=== PATIENT | female | born 1995 | race Caucasian/White ===

== ENCOUNTER 2016-07-10 00:58 | Emergency (ER) | payer BC ==
[2016-07-10] MEDS ORDERED: metroNIDAZOLE 250 MG TABLET PO ONE (02:43)
--- NOTE | 2016-07-10 02:43 | PDOC ---
[id number] No Limitations - History of Present Illness Initial Comments: 07/10/16 03:50 The patient is a 21 year old female with no PMHx who presents to the ED with subxiphoid abdominal pain radiating to sternum today. The patient states the pain began after drinking soda, but has intermittently persisted since. She reports taking Pepcid earlier today, with no relief. She denies fever, chills, nausea, vomiting, diarrhea. She denies chest pain, SOB, coughing, wheezing. <Niki Llamas - Last Filed: 07/10/16 03:50> <Maggie Ribeiro - Last Filed: 07/10/16 06:29> - General Chief Complaint: Pain, Acute Stated Complaint: ABDOMINAL AND CHEST PAIN Time Seen by Provider: 07/10/16 01:47 Past History <Niki Llamas - Last Filed: 07/10/16 03:50> - Psycho/Social/Smoking Cessation Hx Anxiety: No Suicidal Ideation: No Smoking Status: No Smoking History: Never smoked Number of Cigarettes Smoked Daily: 0 Information on smoking cessation initiated: No Hx Alcohol Use: No Drug/Substance Use Hx: No Substance Use Type: None <Maggie Ribeiro - Last Filed: 07/10/16 06:29> - Past Medical History Allergies/Adverse Reactions: Allergies Allergy/AdvReac Type Severity Reaction Status Date / Time No Known Allergies Allergy Verified 09/20/12 09:47 Home Medications: Ambulatory Orders No Home Medications 0 dose .ROUTE UTDICT 01/07/12 Pantoprazole Sodium [Protonix] 40 mg PO DAILY #30 tablet. 07/10/16 Review of Systems - Review of Systems Comments:: 07/10/16 03:51 GENERAL/CONSTITUTIONAL: No fever or chills. No weakness. HEAD, EYES, EARS, NOSE AND THROAT: No change in vision. No ear pain or discharge. No sore throat. CARDIOVASCULAR: No chest pain or shortness of breath. RESPIRATORY: No cough, wheezing, or hemoptysis. GASTROINTESTINAL: + subxiphoid abdominal pain. No nausea, vomiting, diarrhea or constipation. GENITOURINARY: No dysuria, frequency, or change in urination. MUSCULOSKELETAL: No joint or muscle swelling or pain. No neck or back pain. SKIN: No rash NEUROLOGIC: No headache, vertigo, loss of consciousness, or change in strength/ sensation. ENDOCRINE: No increased thirst. No abnormal weight change. HEMATOLOGIC/LYMPHATIC: No anemia, easy bleeding, or history of blood clots. ALLERGIC/IMMUNOLOGIC: No hives or skin allergy. <Daren Llamasobhan Tristin - Last Filed: 07/10/16 03:50> *Physical Exam - Vital Signs Last Vital Signs Temp Pulse Resp BP Pulse Ox 98.1 F 81 18 146/83 100 07/10/16 01:50 07/10/16 01:50 07/10/16 01:50 07/10/16 01:50 07/10/16 01:50 - Physical Exam Comments: 07/10/16 03:51 GENERAL: Awake, alert, and fully oriented, in no acute distress HEAD: No signs of trauma EYES: PERRLA, EOMI, sclera anicteric, conjunctiva clear ENT: Auricles normal inspection, hearing grossly normal, nares patent, oropharynx clear without exudates. Moist mucosa NECK: Normal ROM, supple, no lymphadenopathy, JVD, or masses LUNGS: Breath sounds equal, clear to auscultation bilaterally. No wheezes, and no crackles HEART: Regular rate and rhythm, normal S1 and S2, no murmurs, rubs or gallops ABDOMEN: Soft, nontender, normoactive bowel sounds. No guarding, no rebound. No masses EXTREMITIES: Normal range of motion, no edema. No clubbing or cyanosis. No cords, erythema, or tenderness NEUROLOGICAL: Cranial nerves II through XII grossly intact. Normal speech, normal gait SKIN: Warm, Dry, normal turgor, no rashes or lesions noted. <LlamasNiki A - Last Filed: 07/10/16 03:50> - Vital Signs Last Vital Signs Temp Pulse Resp BP Pulse Ox 98.1 F 81 18 146/83 100 07/10/16 01:50 07/10/16 01:50 07/10/16 01:50 07/10/16 01:50 07/10/16 01:50 <Maggie Ribeiro - Last Filed: 07/10/16 06:29> ED Treatment Course - ADDITIONAL ORDERS Additional order review: Laboratory Results 07/10/16 03:37 Urine HCG, Qual Negative - Medications Given in the ED: ED Medications Discontinued Medications Generic Name Dose Route Start Last Admin Trade Name Daisy PRN Reason Stop Dose Admin Al Hydroxide/Mg Hydroxide 30 ml 07/10/16 02:56 07/10/16 03:11 Mylanta Oral Suspension - PO 07/10/16 02:57 30 ml ONCE ONE Administration Metronidazole 2,000 mg 07/10/16 02:43 07/10/16 03:11 Flagyl - PO 07/10/16 02:44 Not Given NOW ONE Oxycodone/Acetaminophen 1 combo 07/10/16 02:44 07/10/16 03:11 Percocet 5/325 - PO 07/10/16 02:45 Not Given ONCE ONE Penicillin V Potassium 250 mg 07/10/16 02:44 07/10/16 03:11 Pen Vee K - PO 07/10/16 02:45 Not Given ONCE ONE <Niki Llamas - Last Filed: 07/10/16 03:50> Medical Decision Making - Medical Decision Making 07/10/16 06:28 Pt is morbidly obese and she has GERD symptoms. She has normal EKG and CXR and vitals and normal exam, other than her obesity. She will be treated with protonix. I advised ehr to lose weight and exercise and to eat at least 3 hrs before bedtime, and to avoid spicy foods. <Maggie Ribeiro - Last Filed: 07/10/16 06:29> *DC/Admit/Observation/Transfer - Attestations Scribe Attestion: 07/10/16 03:52 Documentation prepared by Niki Llamas, acting as medical policy specialist for Maggie Ribeiro MD. <Niki Llamas - Last Filed: 07/10/16 03:50> - Discharge Dispostion Admit: No <Maggie Ribeiro - Last Filed: 07/10/16 06:29> Diagnosis at time of Disposition: GERD (gastroesophageal reflux disease) - Discharge Dispostion Disposition: HOME Condition at time of disposition: Stable - Prescriptions Prescriptions: Pantoprazole Sodium [Protonix] 40 mg PO DAILY #30 tablet.dr - Referrals Referrals: STAFF,NOT ON [Primary Care Provider] - - Patient Instructions Printed Discharge Instructions: DI for Gastroesophageal Reflux Disease (GERD), Exercise 101: Sit-Ups, Exercise 101: Lunge Using Free Weights
[2016-07-10] MEDS ORDERED: OXYCODONE/APAP 5/325MG COMBO TABLET PO ONE (02:44)
[2016-07-10] MEDS ORDERED: PENICILLIN V POTASSIUM 250 MG TABLET PO ONE (02:44)
[2016-07-10] MEDS ORDERED: MAG HYDROX/AL HYDROX/SIMETH 30 ML UNIT-DOSE CUP PO ONE (02:56)
[2016-07-10] MEDS ORDERED: MAG HYDROX/AL HYDROX/SIMETH 30 ML UNIT-DOSE CUP ONE (03:09)
[2016-07-10 06:32] VITALS: BP 146/83; PULSE 81; TEMP 98.1; BMI 28.7
--- NOTE | 2016-07-10 16:15 | EKG ---
Test Reason : Blood Pressure : / mmHG Vent. Rate : 073 BPM Atrial Rate : 073 BPM P-R Int : 148 ms QRS Dur : 078 ms QT Int : 410 ms P-R-T Axes : 028 005 032 degrees QTc Int : 451 ms NORMAL SINUS RHYTHM NO PREVIOUS ECGS AVAILABLE Confirmed by JUDI CALLEJAS MD ([id number]) on 07/10/2016 4:14:31 PM Referred By: Confirmed By:JUDI CALLEJAS MD
== END 2016-07-10 04:30 | disposition home or self-care (01) ==
LOC: JER 00:58
DX: R10.10 Upper abdominal pain, unspecified (principal); K21.9 Gastro-esophageal reflux disease without esophagitis
CPT/HCPCS: 71020-TC; 84703; 93005; 93010; 99282-25

== ENCOUNTER 2023-07-04 22:12 | Emergency (ER) | payer BC ==
[2023-07-04 22:27] VITALS: BP 138/83; PULSE 99; RESP 18; TEMP 97.6; BMI 38.7
[2023-07-05 00:47] LABS: BASO % 0.2 % (0-2.0); EOS % 1.1 % (0-4.5); HEMATOCRIT 37.4 % (32.4-45.2); HEMOGLOBIN 12.4 GM/dL (10.7-15.3); LYMPH % 21.1 % (8-40); MCH 26.5 pg (25.7-33.7); MCHC 33.1 g/dl (32.0-36.0); MEAN CELL VOLUME 80.1 fl (80-96); MEAN PLT VOLUME 8.1 fl (7.5-11.1); MONO % 7.7 % (3.8-10.2); NEUT % 69.9 % (42.8-82.8); PLATELET COUNT 342 10^3/uL (134-434); RBC 4.67 M/mm3 (3.60-5.2); RDW 15.8 % (11.6-15.6); WHITE BLOOD COUNT 14.1 K/mm3 (4.0-10.0)
[2023-07-05 01:14] LABS: CHLORIDE 105 mmol/L (98-107); POTASSIUM 3.5 mmol/L (3.5-5.1); SODIUM 139 mmol/L (136-145)
[2023-07-05 01:16] LABS: CALCIUM 8.8 mg/dL (8.5-10.1)
[2023-07-05 01:17] LABS: ALBUMIN 3.6 g/dl (3.4-5.0); ANION GAP 7 mmol/L (4-13); BLOOD UREA NITROGEN 13.9 mg/dL (7-18); CO2 27 mmol/L (21-32); GLUCOSE,RANDOM 110 mg/dL (74-106); MAGNESIUM 2.2 mg/dL (1.8-2.4)
[2023-07-05 01:20] LABS: CREATININE 0.8 mg/dL (0.55-1.3); SGOT/AST 10 U/L (15-37); SGPT/ALT 22 U/L (13-61)
[2023-07-05 01:21] LABS: BILIRUBIN,TOTAL 0.3 mg/dL (0.2-1); TOT PROT 7.5 g/dl (6.4-8.2)
[2023-07-05 01:23] LABS: ALK PHOS 68 U/L (45-117)
== END 2023-07-05 02:30 | disposition home or self-care (01) ==
LOC: JER 22:12
DX: R00.2 Palpitations (principal); R07.89 Other chest pain
CPT/HCPCS: 36415; 80053; 83735; 84439; 84443; 84484; 84702; 85025; 85379; 93005; 93010; 99284-25